=== PATIENT | female | born 1955 | race Two or more races ===

== ENCOUNTER 2022-03-08 16:55 | Emergency (ER) | payer MEDICARE, OTHER ==
[~2022-03-08] VITALS: Ht 162.6 cm; Wt 45.4 kg
--- NOTE | 2022-03-08 17:21 | NUR ---
BIBSISTER C/O JAW PAIN WHILE EATING CHIPS. PAIN STATED PAIN IS 9/10 ON PAIN SCALE.
[2022-03-08] MEDS ORDERED: ONDANSETRON HCL/PF 4 MG/2 ML VIAL ONE (18:41)
[2022-03-08] MEDS ORDERED: FENTANYL PF 100MCG/2ML AMPUL ONE (18:42)
--- NOTE | 2022-03-08 18:44 | NUR ---
PT TAKEN TO CT VIA [facility]
[2022-03-08] MEDS ORDERED: ONDANSETRON HCL/PF 4 MG/2 ML VIAL IV ONE (19:00)
[2022-03-08] MEDS ORDERED: FENTANYL PF 100MCG/2ML AMPUL IV ONE (19:00)
[2022-03-08] MEDS ORDERED: IV NS 0.9% 1,000 ML IV ONE (19:00)
--- NOTE | 2022-03-08 19:30 | NUR ---
RECEIVED REPORT FROM SCOTT LI. PATIENT IS [id number]. STILL WITH LOCK JAW. HAS IV CANNULA G20 ON RIGHT AC. ATTACHED TO MONITOR. VITALS CHECKED.
[2022-03-08 19:31] LABS: CALCIUM, SERUM 9.5 mg/dL (8.5-10.1); CREATININE 0.6 mg/dL (0.6-1.3); POTASSIUM 3.5 mmol/L (3.5-5.1)
[2022-03-08 19:53] LABS: BASOPHILS % (AUTO) 0.2 % (0.0-2.0); EOSINOPHILS % (AUTO) 1.1 % (0.0-6.0); HEMATOCRIT 40 % (33-45); LYMPHOCYTES % (AUTO) 17.6 % (20.0-44.0); MEAN CORPUSCULAR HGB CONC 33 g/dl (31.0-36.0); MEAN CORPUSCULAR VOLUME 80 fL (82-100); MONOCYTES # (AUTO) 0.3 K/uL (0.1-1.30); MONOCYTES % (AUTO) 5.3 % (2.0-12.0); NEUTROPHILS # (AUTO) 4.4 K/uL (1.8-8.9); NEUTROPHILS % (AUTO) 75.8 % (43.0-81.0); PLATELET COUNT (AUTO) 236 K/uL (150-450); RED BLOOD CELL COUNT(AUTO) 4.96 MIL/uL (4.0-5.2); WHITE BLOOD COUNT (AUTO) 5.9 K/uL (4.3-11.0)
[2022-03-08] MEDS ORDERED: MIDAZOLAM HCL 2 MG/2ML VIAL ONE (21:08)
[2022-03-08] MEDS ORDERED: CYCLOBENZAPRINE 10 MG TABLET ONE (21:08)
[2022-03-08] MEDS ORDERED: CYCLOBENZAPRINE 10 MG TABLET PO ONE (21:30)
[2022-03-08] MEDS ORDERED: MIDAZOLAM HCL 2 MG/2ML VIAL IV ONE (21:30)
--- NOTE | 2022-03-08 21:50 | NUR ---
DR HOLM TRIED TO MANUALLY ALIGN THE JAW BUT PT STILL IN PAIN. WE WILL BE DOING CONSCIOUS SEDATION INSTEAD. RT MADE AWARE.
[2022-03-08] MEDS ORDERED: PROPOFOL 200 MG/20 ML VIAL IV ONE (22:00)
[2022-03-08] MEDS ORDERED: PROPOFOL 20 ML IV ONE ×2 (22:02→22:08)
--- NOTE | 2022-03-08 22:23 | NUR ---
PROPOFOL 22.5MG IV PUSH ON RIGHT AC G20 FIVEN WITH VITALS HR 60BPM, OXYGEN SAT 100%, RR 18CPM, BP 172/105mmHg. MANUAL REDUCTION ATTEMPTED; FAILED
--- NOTE | 2022-03-08 22:24 | NUR ---
ANOTHER DOSE OF PROPOFOL 22.5MG IV PUSH ON RIGHT AC G20 GIVEN. VITALS CHECKED HR 63BPM, RR 17CPM, OXYGEN SAT 98% BP 163/90mmHg. MANUAL REDUCTION ATTEMPTED AGAIN BY DR HOLM.
--- NOTE | 2022-03-08 22:25 | NUR ---
PATIENT IS AWAKE AND CONVERSANT
--- NOTE | 2022-03-08 22:28 | NUR ---
MANDIBLE DISLOCATION REDUCTION DONE BY DR HOLM UNDER CONSCIOUS SEDATION.
--- NOTE | 2022-03-08 23:41 | NUR ---
IV CANNULA REMOVED
[2022-03-08 23:42] VITALS: BP 159/101
--- NOTE | 2022-03-08 23:42 | NUR ---
Patient discharged to home in stable condition. Written and verbal after care instructions given. Patient verbalizes understanding of instruction.
== END 2022-03-08 23:43 | disposition home or self-care (01) ==
LOC: ER 16:59
DX: S03.03XA Dislocation of jaw, bilateral, initial encounter (principal); E03.9 Hypothyroidism, unspecified; X58.XXXA Exposure to other specified factors, initial encounter; Y93.89 Activity, other specified; Y92.89 Other specified places as the place of occurrence of the external cause; Y99.8 Other external cause status
CPT/HCPCS: 99285; 21480; 96374; 70486; 96361; 99152; 85025; 80048; 36415; J2704 ×2; J3010; J2405; J7030 ×2; J2250; G0500